=== PATIENT | female | born 2000 | race Asian ===

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

== ENCOUNTER 2020-02-14 19:38 | Emergency (ER) | payer OTHER ==
[~2020-02-14] VITALS: Ht 160 cm; Wt 58.2 kg
[2020-02-14] MEDS ORDERED: ACETAMINOPHEN 500 MG TABLET PO ONE (20:00)
[2020-02-14 20:55] VITALS: BP 116/75
== END 2020-02-14 20:56 | disposition home or self-care (01) ==
LOC: EMS 19:39
DX: B34.9 Viral infection, unspecified (principal); Z71.89 Other specified counseling; Z20.828 Contact with and (suspected) exposure to other viral communicable diseases
CPT/HCPCS: 87430; 87635

== ENCOUNTER → 2020-10-22 | Outpatient (CLI) | payer OTHER | END | disposition home or self-care (01) | LOC: LABPV 08:44 | PROVIDERS: ATTEND Internal Medicine Geriatric Medicine | DX: Z00.00 Encounter for general adult medical examination without abnormal findings (principal) | CPT/HCPCS: 86706; 86735; 86762; 86765; 86787 ==

== ENCOUNTER → 2021-03-24 | Outpatient (CLI) | payer OTHER | END | disposition home or self-care (01) | LOC: RADMN 13:33 | PROVIDERS: ATTEND Otolaryngology | DX: H83.8X2 Other specified diseases of left inner ear (principal) | CPT/HCPCS: 70480 ==

== ENCOUNTER → 2022-11-26 | Outpatient (CLI) | payer OTHER ==
[~2022-11-26] MED LIST: GADOTERATE MEGLUMINE 10 MMOL/20 ML VIAL IVP ONE
[2022-11-26 10:17] LABS: ALANINE AMINOTRANSFERASE 18 U/L (12-78); ALBUMIN 3.9 g/dL (3.4-5.0); ALKALINE PHOSPHATASE 43 U/L (46-116); ANION GAP 8 mmol/L (8-16); ASPARTATE AMINOTRANSFERASE 17 U/L (15-37); BILIRUBIN,TOTAL 0.4 mg/dL (0.1-1.0); CALCIUM, TOTAL 9.1 mg/dL (8.8-10.5); CARBON DIOXIDE 27 mmol/L (22-29); CHLORIDE 102 mmol/L (98-107); CREATININE 0.79 mg/dL (0.60-1.30); GLOMERULAR FILTR. RATE CALC > 60 mL/min (>60); GLUCOSE,RANDOM 92 mg/dL (70-110); POTASSIUM 3.8 mmol/L (3.5-5.1); SODIUM SERUM 137 mmol/L (136-145); TOTAL PROTEIN, SERUM 8.3 g/dL (6.4-8.2); UREA NITROGEN, BLOOD 12 mg/dL (7-18)
== END | disposition home or self-care (01) ==
LOC: MSR 09:32
PROVIDERS: ATTEND Internal Medicine Geriatric Medicine
DX: K09.9 Cyst of oral region, unspecified (principal)
CPT/HCPCS: 70543; 80053; 36415; A9575